=== PATIENT | female | born 1955 | race Two or more races ===

== ENCOUNTER → 2019-10-29 13:28 | Outpatient (CLI) | payer BC | END | disposition home or self-care (01) | LOC: LAB | PROVIDERS: ATTEND Internal Medicine Cardiovascular Disease | DX: E03.8 Other specified hypothyroidism (principal); I10 Essential (primary) hypertension; E11.9 Type 2 diabetes mellitus without complications; E78.2 Mixed hyperlipidemia; Z12.11 Encounter for screening for malignant neoplasm of colon; M81.0 Age-related osteoporosis without current pathological fracture; E55.9 Vitamin D deficiency, unspecified; N39.0 Urinary tract infection, site not specified ==

== ENCOUNTER → 2019-10-29 | Outpatient (CLI) | payer BC | END | disposition home or self-care (01) | LOC: MAMO-SONO 08:15 → RAD 08:25 | PROVIDERS: ATTEND Internal Medicine Cardiovascular Disease | DX: Z12.31 Encounter for screening mammogram for malignant neoplasm of breast (principal); Z87.898 Personal history of other specified conditions; J44.9 Chronic obstructive pulmonary disease, unspecified; M46.47 Discitis, unspecified, lumbosacral region; M19.90 Unspecified osteoarthritis, unspecified site; N63.10 Unspecified lump in the right breast, unspecified quadrant ==

== ENCOUNTER 2019-10-31 08:34 | Outpatient (CLI) | payer BC | END 2019-10-31 08:41 | disposition home or self-care (01) | LOC: TOM 08:34 | PROVIDERS: ATTEND Internal Medicine Cardiovascular Disease | DX: R10.84 Generalized abdominal pain (principal) ==

== ENCOUNTER 2023-10-19 07:18 | Inpatient (IN) | payer OTHER, BC ==
[~2023-10-19] VITALS: Ht 167.6 cm; Wt 83.9 kg
[2023-10-19 11:14] LABS: HEMATOCRIT 32.1 % (36.0-45.00); HEMOGLOBIN 10.6 g/dL (12.0-15.00); MEAN CELL VOLUME 87.7 fL (80.00-100.00); MEAN CORPUSCULAR HEMOGLOBIN 29.1 pg (27.00-32.0); MEAN CORPUSCULAR HGB CONC 33.1 g/dl (32.0-36.0); PLATELET COUNT 249 K/uL (150-450); RED BLOOD COUNT 3.66 M/uL (4.00-6.00)
[2023-10-19 11:15] LABS: RED CELL DISTRIBUTION WIDTH 25.6 % (11.5-14.5)
[2023-10-19 11:46] LABS: ERYTHROCYTE SEDIMENTATION RATE 60 mm/hr
[2023-10-19] MEDS ORDERED: CEFTRIAXONE SODIUM 2,000 MG in 0.9 % SODIUM CHLORIDE 100 ML IV SCH (11:51)
[2023-10-19] MEDS ORDERED: FAMOTIDINE/PF 20 MG in 0.9 % SODIUM CHLORIDE 100 ML IV SCH (11:52)
[2023-10-19 11:55] LABS: ALBUMIN 3.8 gm/dL (3.4-5.0); BILIRUBIN TOTAL 0.45 mg/dL (0.3-1.2); CALCIUM 9.5 mg/dL (8.5-10.1); CREATININE SERUM 0.8 mg/dL (0.55-1.02); GFR 70.91; POTASSIUM 3.68 mEq/L (3.5-5.1); TOTAL PROTEIN 7.8 gm/dL (6.4-8.2)
[2023-10-19] MEDS ORDERED: MORPHINE SULFATE 2 MG/ML CARTRIDGE IV PRN (12:00)
[2023-10-19] MEDS ORDERED: 0.9 % SODIUM CHLORIDE 1,000 ML IV SCH (12:00)
[2023-10-19] MEDS ORDERED: CEFTRIAXONE SODIUM 2,000 MG VIAL ONE (13:34)
[2023-10-19] MEDS ORDERED: FAMOTIDINE/PF 20 MG/2 ML VIAL ONE (13:34)
[2023-10-19 16:20] LABS: INR 1.03; PARTIAL THROMBOPLASTIN TIME 29.8 SECONDS (22.0-34.0); PROTHROMBIN TIME 10.8 SECONDS (9.0-11.5)
[2023-10-20] MEDS ORDERED: VANCOMYCIN HCL 1,000 MG VIAL IV SCH (17:00)
[2023-10-21] MEDS ORDERED: PIPERACILLIN/TAZOBACTAM SODIUM 3.375 GM VIAL IV SCH (18:00)
[2023-10-23] MEDS ORDERED: PIPERACILLIN/TAZOBACTAM SODIUM 3.375 GM in 0.9 % SODIUM CHLORIDE 100 ML IV SCH (09:00)
[2023-10-24] MEDS ORDERED: METHYLPREDNISOLONE SOD SUCC 40 MG VIAL IV NR (09:45)
[2023-10-24] MEDS ORDERED: DIATRIZOATE MEGLUMINE, SODIUM 30 ML BOTTLE PO NR (09:45)
[2023-10-24] MEDS ORDERED: DIPHENHYDRAMINE HCL 50 MG/ML VIAL 1ML IV NR (09:45)
[2023-10-24 13:46] LABS: HEMOGLOBIN 10.9 g/dL (12.0-15.00); MEAN CELL VOLUME 88.3 fL (80.00-100.00); MEAN CORPUSCULAR HEMOGLOBIN 29.2 pg (27.00-32.0); PLATELET COUNT 219 K/uL (150-450); RED BLOOD COUNT 3.74 M/uL (4.00-6.00); RED CELL DISTRIBUTION WIDTH 24.6 % (11.5-14.5)
[2023-10-24] MEDS ORDERED: REMDESIVIR 100 MG VIAL IV NR (14:00)
[2023-10-24 19:06] LABS: CALCIUM 9.1 mg/dL (8.5-10.1); CREATININE SERUM 0.88 mg/dL (0.55-1.02); GFR 63.52; POTASSIUM 3.8 mEq/L (3.5-5.1)
[2023-10-25] MEDS ORDERED: REMDESIVIR 100 MG VIAL IV SCH (12:00)
[2023-10-27 10:03] LABS: HEMATOCRIT 31.4 % (36.0-45.00); HEMOGLOBIN 10.4 g/dL (12.0-15.00); MEAN CELL VOLUME 87.6 fL (80.00-100.00); MEAN CORPUSCULAR HEMOGLOBIN 29.1 pg (27.00-32.0); MEAN CORPUSCULAR HGB CONC 33.3 g/dl (32.0-36.0); PLATELET COUNT 180 K/uL (150-450); RED BLOOD COUNT 3.59 M/uL (4.00-6.00); RED CELL DISTRIBUTION WIDTH 24.9 % (11.5-14.5)
[2023-10-27 10:37] LABS: ALBUMIN 3.4 gm/dL (3.4-5.0); BILIRUBIN TOTAL 0.25 mg/dL (0.3-1.2); CREATININE SERUM 0.81 mg/dL (0.55-1.02); GFR 69.9; GLOBULINA 3.4 G/DL (2.4-3.5); POTASSIUM 3.63 mEq/L (3.5-5.1); TOTAL PROTEIN 6.8 gm/dL (6.4-8.2)
== END 2023-10-31 22:21 | disposition left against medical advice (07) | DRG 579 ==
LOC: ER 07:19 → SEC-K 12:28 → SURH 12:28
PROVIDERS: General Practice; Internal Medicine; ADMIT Internal Medicine; ATTEND Internal Medicine
PROC: B54DZZZ Ultrasonography of Bilateral Lower Extremity Veins (ICD-10-PCS; 2023-10-19)
PROC: 0JBN3ZZ Excision of Right Lower Leg Subcutaneous Tissue and Fascia, Percutaneous Approach (ICD-10-PCS; principal; 2023-10-20)
PROC: 02HV33Z Insertion of Infusion Device into Superior Vena Cava, Percutaneous Approach (ICD-10-PCS; 2023-10-24)
PROC: BQ27YZZ Computerized Tomography (CT Scan) of Right Knee using Other Contrast (ICD-10-PCS; 2023-10-24)
PROC: XW033E5 Introduction of Remdesivir Anti-infective into Peripheral Vein, Percutaneous Approach, New Technology Group 5 (ICD-10-PCS; 2023-10-24)
PROC: 0JBN3ZZ Excision of Right Lower Leg Subcutaneous Tissue and Fascia, Percutaneous Approach (ICD-10-PCS; 2023-10-26)
DX: L97.118 Non-pressure chronic ulcer of right thigh with other specified severity (principal); U07.1 COVID-19; L08.89 Other specified local infections of the skin and subcutaneous tissue; B96.5 Pseudomonas (aeruginosa) (mallei) (pseudomallei) as the cause of diseases classified elsewhere; W54.0XXA Bitten by dog, initial encounter; Y92.9 Unspecified place or not applicable; R13.10 Dysphagia, unspecified; L04.0 Acute lymphadenitis of face, head and neck

== ENCOUNTER 2023-12-18 12:41 | Emergency (ER) | payer BC ==
[~2023-12-18] VITALS: Ht 167.6 cm; Wt 83.9 kg
[2023-12-18] MEDS ORDERED: METHYLPREDNISOLONE SOD SUCC 125 MG VIAL IV ONE (15:30)
[2023-12-18] MEDS ORDERED: ORPHENADRINE CITRATE 30 MG/ML AMPUL IM ONE (15:30)
[2023-12-18] MEDS ORDERED: KETOROLAC TROMETHAMINE 30 MG VIAL IV ONE (15:30)
[2023-12-18] MEDS ORDERED: ORPHENADRINE CITRATE 30 MG/ML AMPUL ONE (15:35)
[2023-12-18] MEDS ORDERED: KETOROLAC TROMETHAMINE 30 MG VIAL ONE (15:35)
[2023-12-18] MEDS ORDERED: METHYLPREDNISOLONE SOD SUCC 125 MG VIAL ONE (15:36)
[2023-12-18 16:02] LABS: HEMATOCRIT 33.9 % (36.0-45.00); HEMOGLOBIN 11.2 g/dL (12.0-15.00); MEAN CELL VOLUME 86.3 fL (80.00-100.00); MEAN CORPUSCULAR HEMOGLOBIN 28.5 pg (27.00-32.0); PLATELET COUNT 253 K/uL (150-450); RED BLOOD COUNT 3.93 M/uL (4.00-6.00); RED CELL DISTRIBUTION WIDTH 21.9 % (11.5-14.5)
[2023-12-18 16:11] LABS: ERYTHROCYTE SEDIMENTATION RATE 103 mm/hr
[2023-12-18] MEDS ORDERED: PIMECROLIMUS30 GM TOP (17:14)
[2023-12-18] MEDS ORDERED: NORFLEX100MG PO (17:14)
== END 2023-12-18 18:01 ==
LOC: ER 12:42
PROVIDERS: Nurse Practitioner Family
DX: M62.838 Other muscle spasm (principal); Z88.2 Allergy status to sulfonamides; Z91.041 Radiographic dye allergy status; R21 Rash and other nonspecific skin eruption